=== PATIENT | male | born 1970 | race Caucasian/White ===

== ENCOUNTER 2017-01-25 17:41 | Emergency (ER) | payer OTHER | END 2017-01-25 20:03 | disposition home or self-care (01) | LOC: ER 17:41 | DX: K28.3 Acute gastrojejunal ulcer without hemorrhage or perforation (principal); I10 Essential (primary) hypertension; F41.9 Anxiety disorder, unspecified; Z88.0 Allergy status to penicillin | CPT/HCPCS: 36415; 96361; 96374; 96375 ==